=== PATIENT | female | born 1990 | race Caucasian/White ===

== ENCOUNTER → 2017-03-07 | Outpatient (CLI) | payer BC ==
--- NOTE | 2017-03-07 10:27 | US ---
EXAMINATION TYPE: US abdomen complete DATE OF EXAM: 03/07/2017 10:12 AM COMPARISON: 2014 CLINICAL HISTORY: R10.11 RUQ Pain. Large body habitus, overlying bowel gas EXAM MEASUREMENTS: Liver Length: 14.0 cm Gallbladder Wall: 0.2 cm CBD: 0.2 cm Spleen: 11.0 cm Right Kidney: 10.2 x 3.3 x 10.0 cm Left Kidney: 10.0 x 4.0 x 3.9 cm Pancreas: large body habitus, overlying bowel gas, portions seen wnl Liver: large body habitus, overlying bowel gas, portions seen wnl Gallbladder: large body habitus, overlying bowel gas, portions seen wnl Evidence for sonographic Alonzo's sign: No CBD: wnl Spleen: wnl Right Kidney: wnl Left Kidney: wnl Upper IVC: wnl Abd Aorta: wnl The liver is homogenous. The intrahepatic portion of the IVC and proximal abdominal aorta are within normal limits. There is no evidence of cholelithiasis. Common bile duct is unremarkable. The visu alized portions of the pancreas are homogenous. The spleen is unremarkable. Kidneys are symmetric a nd free of hydronephrosis. No renal lesions are seen. IMPRESSION: No significant abnormalities
== END | disposition home or self-care (01) ==
LOC: RADUSWWP 09:46
PROVIDERS: ATTEND Family Medicine
DX: R10.11 Right upper quadrant pain (principal)
CPT/HCPCS: 76700

== ENCOUNTER → 2017-04-03 | Outpatient (CLI) | payer BC ==
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
== END | disposition home or self-care (01) ==
LOC: RADNMMAIN 13:08
PROVIDERS: ATTEND Family Medicine
DX: K21.9 Gastro-esophageal reflux disease without esophagitis (principal)
CPT/HCPCS: 78226; A9537

== ENCOUNTER → 2018-01-20 | Outpatient (CLI) | payer BC | END | disposition home or self-care (01) | LOC: PROCWHC3 12:06 | PROVIDERS: ATTEND Family Medicine | DX: R11.0 Nausea (principal); R52 Pain, unspecified | CPT/HCPCS: 87502 ==

== ENCOUNTER 2018-02-10 07:43 | Emergency (ER) | payer OTHER, BC ==
[2018-02-10 07:48] VITALS: BP 105/66; PULSE 88; RESP 16; TEMP 97.8
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
--- NOTE | 2018-02-10 08:27 | XR ---
EXAMINATION TYPE: XR knee complete LT DATE OF EXAM: 02/10/2018 CLINICAL HISTORY: pain TECHNIQUE: Three views of the left knee are obtained. COMPARISON: None. FINDINGS: There is no acute fracture/dislocation. The tri-compartment joint spaces appear within no rmal limits. The overlying soft tissue appears unremarkable. IMPRESSION: There is no acute fracture or dislocation ICD 10 NO FRACTURE, INITIAL EVALUATION
--- NOTE | 2018-02-10 08:28 | XR ---
EXAMINATION TYPE: XR shoulder complete RT DATE OF EXAM: 02/10/2018 CLINICAL HISTORY: pain TECHNIQUE: Three views of the right shoulder are obtained. COMPARISON: None FINDINGS: There is no acute fracture/dislocation evident. The acromioclavicular and glenohumeral lan int spaces appear within normal limits. The visualized ribs are intact and unremarkable. IMPRESSION: 1. There is no acute fracture or dislocation. ICD 10 NO FRACTURE, INITIAL EVALUATION
[2018-02-10] MEDS ORDERED: traMADol 50 MG STARTER PACK 3 TAB BTL PO STA (08:35)
--- NOTE | 2018-02-10 08:40 | ED ---
Disposition Clinical Impression: Left knee sprain, Sprain of right shoulder Disposition: HOME SELF-CARE Condition: Good Instructions: Rotator Cuff Injury (ED), Meniscus Tear (ED) Additional Instructions: patient advised to ice the shoulder and he is much as possible. Wear the sling and Lasha wrap. Patient should follow-up with site specialist within the next few days. He may need to have an MRI for further evaluation. Patient should take the pain medicine and anti-inflammatory medicine. Return to the emergency department if any alarming signs or symptoms occur. Prescriptions: Ibuprofen [Motrin] 400 mg PO Q6HR PRN #20 tab PRN Reason: Pain traMADol HCl [Ultram] 50 mg PO Q6H PRN #20 tab PRN Reason: Pain Referrals: Hema Gregg MD [Primary Care Provider] - 1-2 days Braeden Alonzo MD [STAFF PHYSICIAN] - 1-2 days
== END 2018-02-10 08:50 | disposition home or self-care (01) ==
LOC: EC 07:43
DX: S43.401A Unspecified sprain of right shoulder joint, initial encounter (principal); S83.92XA Sprain of unspecified site of left knee, initial encounter; V89.2XXA Person injured in unspecified motor-vehicle accident, traffic, initial encounter; W22.11XA Striking against or struck by driver side automobile airbag, initial encounter; Y92.410 Unspecified street and highway as the place of occurrence of the external cause
CPT/HCPCS: 99284

== ENCOUNTER → 2019-04-21 | Outpatient (CLI) | payer MEDICAID ==
--- NOTE | 2019-04-21 15:15 | US ---
EXAMINATION TYPE: US thyroid st tissue head/neck DATE OF EXAM: 04/21/2019 COMPARISON: NONE CLINICAL HISTORY: E04.1 SINGLE THYROID GOITER. Difficulty swallowing GLAND SIZE: Right Lobe: 4.5 x 1.3 x 1.6 cm Overall Parenchyma: mildly heterogeneous Left Lobe: 4.5 x 1.3 x 1.4 cm Overall Parenchyma: mildly heterogeneous Isthmus Thickness: 0.2 cm NODULES RIGHT: # of nodules measured on right: 0 LEFT: # of nodules measured on left: 0 ISTHMUS: # of nodules measured in the isthmus: 0 Bilateral neck scanned, no evidence of lymphadenopathy. Slightly heterogeneous normal-sized thyroid without discrete nodules. IMPRESSION: As above.
== END | disposition home or self-care (01) ==
LOC: RADUSWWP 14:54
PROVIDERS: ATTEND Family Medicine
DX: E04.1 Nontoxic single thyroid nodule (principal)
CPT/HCPCS: 76536

== ENCOUNTER → 2019-06-05 | Outpatient (CLI) | payer MEDICAID ==
--- NOTE | 2019-06-05 12:20 | ECHOF ---
Referral Reason:Z82.49 Family history of ischemic heart disease a MEASUREMENTS -------- HEIGHT: 406.4 cm WEIGHT: 29.5 kg BP: RVIDd: 2.0 cm (< 3.3) IVSd: 0.8 cm (0.6 - 1.1) LVIDd: 4.6 cm (3.9 - 5.3) LVPWd: 0.9 cm (0.6 - 1.1) IVSs: 1.2 cm LVIDs: 2.9 cm LVPWs: 1.2 cm LA Diam: 2.4 cm (2.7 - 3.8) Ao Diam: 2.8 cm (2.0 - 3.7) AV Cusp: 1.9 cm (1.5 - 2.6) LA Diam: 2.7 cm (2.7 - 3.8) MV EXCURSION: 16.139 mm (> 18.000) MV EF SLOPE: 86 mm/s (70 - 150) EPSS: 0.5 cm MV E Jacob: 0.72 m/s MV DecT: 168 ms MV A Jacob: 0.59 m/s MV E/A Ratio: 1.23 RAP: 5.00 mmHg RVSP: 18.36 mmHg FINDINGS -------- Sinus rhythm. This was a technically good study. LV size, wall thickness and systolic function are normal, with an EF greater than 55%. The left sachi tricular size is normal. The right ventricle is normal in size. The left atrial size is normal. The right atrial size is normal. The aortic valve is trileaflet, and appears structurally normal. No aortic stenosis or regurgitation. Mild mitral regurgitation is present. Mild tricuspid regurgitation present. There is no evidence of pulmonary hypertension. The right v entricular systolic pressure, as measured by Doppler, is 18.36mmHg. There is no pulmonic regurgitation present. The aortic root size is normal. There is no pericardial effusion. CONCLUSIONS -------- 1. LV size, wall thickness and systolic function are normal, with an EF greater than 55%. 2. The left ventricular size is normal. 3. The right ventricle is normal in size. 4. The left atrial size is normal. 5. The right atrial size is normal. 6. The aortic valve is trileaflet, and appears structurally normal. No aortic stenosis or regurgitati on. 7. Mild mitral regurgitation is present. 8. Mild tricuspid regurgitation present. 9. There is no evidence of pulmonary hypertension. 10. The right ventricular systolic pressure, as measured by Doppler, is 18.36mmHg. 11. There is no pulmonic regurgitation present. 12. The aortic root size is normal. 13. There is no pericardial effusion. SENIOR CLINICAL RESEARCH SCIENTIST: Zandra Fallon RDCS
== END ==
LOC: RADECHMAIN 08:24
PROVIDERS: ATTEND Family Medicine
DX: I08.1 Rheumatic disorders of both mitral and tricuspid valves (principal); Z82.49 Family history of ischemic heart disease and other diseases of the circulatory system
CPT/HCPCS: 93306

== ENCOUNTER → 2020-06-27 | Outpatient (CLI) | payer OTHER ==
[2020-06-27 13:07] LABS: Basophils % (A) 0 %; Eosinophils # (A) 0.2 k/uL (0-0.7); Eosinophils % (A) 3 %; HGB 14.1 gm/dL (11.4-16.0); Lymphocytes # (A) 1.8 k/uL (1.0-4.8); Lymphocytes % (A) 22 %; MCH 28.8 pg (25.0-35.0); MCHC 32.9 g/dL (31.0-37.0); MCV 87.7 fL (80.0-100.0); Mean Platelet Volume 7.6; Monocytes # (A) 0.5 k/uL (0-1.0); Monocytes % (A) 6 %; Neutrophils # (A) 5.6 k/uL (1.3-7.7); Neutrophils % (A) 68 %; Platelet Count 362 k/uL (150-450); RBC 4.91 m/uL (3.80-5.40); RDW 13.1 % (11.5-15.5); WBC 8.2 k/uL (3.8-10.6)
[2020-06-27 19:28] LABS: African American GFR (CKD) 113.9 (60.0-200.0); Albumin/Globulin Ratio 1.43 (1.60-3.17); Anion Gap 7.7 mmol/L (4.00-12.00); BUN/Creat Ratio 11.25 Ratio (12.00-20.00); Calcium 9.2 mg/dL (8.7-10.3); Carbon Dioxide 26.3 mmol/L (21.6-31.8); Chol/HDL Ratio 3.65; Globulin 2.8 g/dL (1.6-3.3); LDL Cholesterol,Calculated 109.4 mg/dL (0.0-131.0); Non-African American GFR(CKD) 98.2 (60.0-200.0); Potassium 4.4 mmol/L (3.5-5.5); Total Bilirubin 0.5 mg/dL (0.2-1.2); Total Protein 6.8 g/dL (6.2-8.2); VLDL Calculation 17.6 mg/dL (5.00-40.00)
[2020-06-27 21:56] LABS: Hepatitis B Surface Antibody Reactive (Non-Reactive)
[2020-06-28 17:02] LABS: Mumps Virus IgG Ab Interp POSITIVE (NEGATIVE)
== END | disposition home or self-care (01) ==
LOC: LABWHC1 10:27
PROVIDERS: ATTEND Family Medicine
DX: Z01.84 Encounter for antibody response examination (principal); F32.9 Major depressive disorder, single episode, unspecified
CPT/HCPCS: 36415; 80053; 80061; 84443; 85025; 86706; 86735; 86762; 86765; 86787

== ENCOUNTER → 2022-07-31 | Outpatient (CLI) | payer OTHER ==
--- NOTE | 2022-07-31 08:22 | US ---
EXAMINATION TYPE: US abdomen complete DATE OF EXAM: 07/31/2022 COMPARISON: NONE CLINICAL HISTORY: R10.9 Abd pain. lost 30lbs in 1 month, nausea, cannot eat, patient states she has a utoimmune disease but not diagnosed with which one TECHNIQUE: Multiple sonographic images of the abdomen are obtained. FINDINGS: EXAM MEASUREMENTS: Liver Length: 14.7 cm Gallbladder Wall: 0.2 cm CBD: 0.4 cm Spleen: 10.3 cm Right Kidney: 10.7 x 5.9 x 4.7 cm Left Kidney: 11.6 x 4.1 x 4.9 cm [employer] NOTES: bowel gas limits exam Pancreas: not seen due to gas Liver: wnl Gallbladder: wnl Evidence for sonographic Alonzo's sign: no CBD: wnl Spleen: wnl Right Kidney: wnl Left Kidney: wnl Upper IVC: wnl Abd Aorta: bowel gas limits views The liver is homogenous. The intrahepatic portion of the IVC and proximal abdominal aorta are within normal limits. There is no evidence of cholelithiasis. Common bile duct is unremarkable. The visu alized portions of the pancreas are homogenous. The spleen is unremarkable. Kidneys are symmetric a nd free of hydronephrosis. No renal lesions are seen. IMPRESSION: Negative
== END | disposition home or self-care (01) ==
LOC: RADUSWWP 07:01
PROVIDERS: ATTEND Family Medicine
DX: R10.9 Unspecified abdominal pain (principal)
CPT/HCPCS: 76700

== ENCOUNTER → 2022-09-19 | Outpatient (CLI) | payer OTHER ==
[2022-09-19 14:24] LABS: Basophils # (A) 0.04 X 10*3/uL (0.00-0.10); Basophils % (A) 0.5 %; Eosinophils # (A) 0.11 X 10*3/uL (0.04-0.35); Eosinophils % (A) 1.5 %; HCT 45.5 % (37.2-46.3); HGB 15.3 g/dL (12.0-15.0); Immature Grans, Automated 0.1 %; Lymphocytes # (A) 1.89 X 10*3/uL (0.90-5.00); Lymphocytes % (A) 25.8 %; MCH 29.7 pg (27.0-32.0); MCHC 33.6 g/dL (32.0-37.0); MCV 88.3 fL (80.0-97.0); Mean Platelet Volume 10.7 fL (9.5-12.2); Monocytes % (A) 6.8 %; NRBC Per 100 WBC 0 /100 WBCS (0.0-0.0); Neutrophils # (A) 4.78 X 10*3/uL (1.80-7.70); Neutrophils % (A) 65.3 %; Platelet Count 368 X 10*3/uL (140-440); RBC 5.15 X 10*6/uL (4.10-5.20); RDW 13.5 % (11.5-14.5); WBC 7.33 X 10*3/uL (4.50-10.00)
[2022-09-19 15:03] LABS: Erythrocyte Sedimentation Rate 4 mm/Hr (0-20)
[2022-09-19 15:19] LABS: % Iron Saturation 27.11 (12.00-45.00); ALT 20 U/L (8-44); AST 23 U/L (13-35); African American GFR (CKD) 97.4 (60.0-200.0); Albumin 4.2 g/dL (3.8-4.9); Albumin/Globulin Ratio 1.45 (1.60-3.17); Alkaline Phosphatase 69 U/L (41-126); BUN/Creat Ratio 7.33 Ratio (12.00-20.00); Blood Urea Nitrogen 6.6 mg/dL (9.0-27.0); C Reactive Protein <0.30 mg/dL (0.00-0.80); Calcium 9.8 mg/dL (8.7-10.3); Chloride 103 mmol/L (96-109); Globulin 2.9 g/dL (1.6-3.3); Glucose 86 mg/dL (70-110); Iron 104 ug/dL (50-170); Potassium 4.7 mmol/L (3.5-5.5); Sodium 138 mmol/L (135-145); Total Iron Binding Capacity 384 ug/dL (228-460); Total Protein 7.1 g/dL (6.2-8.2); Uric Acid 4.2 mg/dL (2.9-7.7)
[2022-09-19 15:20] LABS: Thyroid Peroxidase Antibodies 11.2 U/mL (0.0-33.0)
[2022-09-19 16:21] LABS: Anti-DNA, DS unit <1.0 IU/mL; Centromere Antibody <0.2 AI; Centromere Antibody Interp NEGATIVE (NEGATIVE); Chromatin Antibody 0.3 AI; DNA Double-Stranded NEGATIVE (NEGATIVE); JO-1 IgG Antibody <0.2 AI; Scleroderma SC-70 Ab <0.2 AI
[2022-09-20 11:42] LABS: Smooth Muscle Antibody 20 UNITS (<20)
[2022-09-20 12:36] LABS: HLA B27 NEGATIVE
[2022-09-20 13:54] LABS: Free Kappa Lt Chain Qnt, Serum 3.09 mg/dL (0.33-1.94); Free Lambda Lt Chain Qnt, Seru 1.62 mg/dL (0.57-2.63)
[2022-09-21 06:44] LABS: Methylmalonic Acid 0.48 umol/L (<0.40)
== END | disposition home or self-care (01) ==
LOC: LABWHC1 10:15
PROVIDERS: ATTEND Family Medicine
DX: E53.8 Deficiency of other specified B group vitamins (principal); M13.0 Polyarthritis, unspecified; D50.9 Iron deficiency anemia, unspecified; L65.0 Telogen effluvium; R53.82 Chronic fatigue, unspecified
CPT/HCPCS: 36415; 80053; 82306; 82607; 82626; 82785; 83516; 83540; 83550; 83883; 83921; 84403; 84439; 84443; 84550; 85025; 85652; 86038; 86140; 86225; 86235; 86334; 86376; 86812

== ENCOUNTER → 2022-11-07 | Outpatient (CLI) | payer OTHER ==
--- NOTE | 2022-11-07 16:23 | NM ---
EXAMINATION TYPE: NM hepatobiliary w EF DATE OF EXAM: 11/07/2022 COMPARISON: NONE INDICATION: Acute gastritis without bleeding TECHNIQUE: After the intravenous administration of 5 mCi Tc 99m Mebrofenin hepatobiliary scintigraphy is performed. Images were obtained immediately post injection. FINDINGS: There is prompt uptake and excretion of radiotracer by the liver. Extrahepatic ducts are identified at 2 minutes. The gallbladder is visualized within 20 minutes. Small bowel activity is noted within 4 minutes. At one hour 8 ounces of oral ensure plus is given to mimic CCK and gallbladder ejection fraction is c alculated at 80 %, which is just over normal. (Normal >35% and <80%.). IMPRESSION: 1. Minimal hyperkinesia of the gallbladder at 80%. Normal is less than 80%.
== END | disposition home or self-care (01) ==
LOC: RADNMMAIN 06:37
PROVIDERS: ATTEND Family Medicine
DX: K82.8 Other specified diseases of gallbladder (principal); K29.00 Acute gastritis without bleeding
CPT/HCPCS: 78226; A9537

== ENCOUNTER → 2023-01-18 | Outpatient (CLI) | payer OTHER ==
--- NOTE | 2023-01-18 15:54 | US ---
EXAMINATION TYPE: US OB<=14wk fetus twins/travag DATE OF EXAM: 01/18/2023 COMPARISON: NONE CLINICAL HISTORY: R10.31 RIGHT LOWER QUADRANT PAIN. EXAM PERFORMED: Transvaginal (TV) and Transabdominal (TA) EXAM MEASUREMENTS: GESTATIONAL AGE / DATING Physician Established: Not yet established Dates by LMP: (8 weeks/0 days) EDC: 08/30/2023 Dates by First Scan: No previous this is first scan Dates by Current Scan for Baby A: ( 8 weeks/5 days) EDC: 08/25/2023 Dates by Current Scan for Baby B: (8 weeks/0 days) EDC: 08/30/2023 MATERNAL ANATOMY Uterus: Subchorionic hemorrhage appearance at the inferior aspect of Baby A's gestational sac 1.1 x 2 .0 x 2.0cm. Right Ovary: wnl Left Ovary: Corpus luteal cyst 1.8 x 1.8 x 2.1cm Post CDS / Adnexa: wnl Presence of free fluid: No Presence of corpus luteal cyst: Yes Presence of subchorionic bleed: Yes Presence of two separate gestational sacs: Yes GESTATION / SURVEY TWIN A CRL: 1.7cm (8wks/2days) MSD: 3.66cm (9wks/1days) Yolk Sac (normal less than 6mm): 4.2mm Heart Rate: 165 bpm Rhythm: Normal IUP: Viable IUP TWIN B CRL: 1.49cm (7wks/6days) MSD: 2.89cm (8wks/1days) Yolk Sac (normal less than 6mm): 5.0mm Heart Rate: 165 bpm Rhythm: Normal IUP: Viable IUP Date of LMP: 11/23/2022 Beta HcG (if available): Unavailable Dichorionic diamniotic live twin . IMPRESSION: 1. Dichorionic diamniotic live twin . Baby A has gestational age of 8 weeks 5 days and baby B has a gestational age of 8 weeks 0 days. 2. Small subchorionic hemorrhage at the inferior aspect of baby A gestational sac. Close clinical miller rveillance is recommended.
== END | disposition home or self-care (01) ==
LOC: RADUSWWP 14:45
PROVIDERS: ATTEND Obstetrics & Gynecology
DX: O26.891 Other specified pregnancy related conditions, first trimester (principal); O20.8 Other hemorrhage in early pregnancy; O30.041 Twin pregnancy, dichorionic/diamniotic, first trimester; Z3A.08 8 weeks gestation of pregnancy
CPT/HCPCS: 76801; 76802; 76817

== ENCOUNTER 2023-01-25 21:55 | Emergency (ER) | payer OTHER ==
[2023-01-25 22:00] VITALS: BP 113/76; PULSE 78; RESP 20; TEMP 98.5
[2023-01-25] MEDS ORDERED: ACETAMINOPHEN TAB 500 MG TAB PO STA (22:25)
[2023-01-25] MEDS ORDERED: ONDANSETRON 4 MG/2 ML VIAL IVP STA (22:25)
[2023-01-25] MEDS ORDERED: SODIUM CHLORIDE 0.9% 1,000 ML IV ONE (22:25)
[2023-01-25 23:00] LABS: Basophils % (A) 0 %; Eosinophils # (A) 0.2 k/uL (0-0.7); Eosinophils % (A) 2 %; HCT 38.4 % (34.0-46.0); HGB 13.5 gm/dL (11.4-16.0); Lymphocytes # (A) 2.4 k/uL (1.0-4.8); Lymphocytes % (A) 21 %; MCH 31.4 pg (25.0-35.0); MCHC 35.2 g/dL (31.0-37.0); MCV 89.1 fL (80.0-100.0); Mean Platelet Volume 7.8; Monocytes # (A) 0.7 k/uL (0-1.0); Monocytes % (A) 6 %; Neutrophils # (A) 7.9 k/uL (1.3-7.7); Neutrophils % (A) 69 %; Platelet Count 256 k/uL (150-450); RBC 4.31 m/uL (3.80-5.40); RDW 13.1 % (11.5-15.5); WBC 11.5 k/uL (3.8-10.6)
[2023-01-25 23:07] LABS: ALT 23 U/L (4-34); AST 26 U/L (14-36); African American GFR (CKD) >90 (>60 ml/min/1.73 sqM); Albumin 3.6 g/dL (3.5-5.0); Alkaline Phosphatase 49 U/L (38-126); Anion Gap 7 mmol/L; Blood Urea Nitrogen 13 mg/dL (7-17); Calcium 8.8 mg/dL (8.4-10.2); Carbon Dioxide 22 mmol/L (22-30); Chloride 106 mmol/L (98-107); Glucose 79 mg/dL (74-99); Non-African American GFR(CKD) >90 (>60 ml/min/1.73 sqM); Potassium 3.8 mmol/L (3.5-5.1); Sodium 135 mmol/L (137-145); Total Bilirubin 0.3 mg/dL (0.2-1.3); Total Protein 6.7 g/dL (6.3-8.2)
[2023-01-25 23:10] LABS: INR 0.9 (<1.2); Partial Thromboplastin Time 23.8 sec (22.0-30.0); Prothrombin Time 9.4 sec (9.0-12.0)
[2023-01-25 23:18] LABS: Appearance,Urine Clear (Clear); Bilirubin,Urine Negative (Negative); Blood,Urine Negative (Negative); Color,Urine Colorless; Glucose,Urine (UA) Negative (Negative); Ketones,Urine Negative (Negative); Leukocyte Esterase,Urine Negative (Negative); Nitrite,Urine Negative (Negative); PH, Urine 6.5 (5.0-8.0); Protein,Urine Negative (Negative); Specific Gravity,Urine 1.002 (1.001-1.035); Urobilinogen,Urine <2.0 mg/dL (<2.0)
--- NOTE | 2023-01-25 23:56 | ED ---
General Adult HPI - General Chief complaint: Abdominal Pain Stated complaint: Left side pain, 9wks Time Seen by Provider: 01/25/23 22:15 Source: patient Mode of arrival: ambulatory Limitations: no limitations - History of Present Illness Initial comments: Patient is a 32-year-old female currently 9 weeks with twins presenting with chief complaint of left-sided flank pain. Patient states that this evening she started experiencing sharp shooting pain in the left side. Patient is having no dysuria or hematuria. No fevers or chills. She admits to some nausea, but states that she has been nauseous throughout her . No chest pain or difficulty breathing. Patient notes that the pain worsens with certain positions and movements. She admits to some pelvic cramping, no current bleeding. States that she was recently diagnosed with a subchorionic hemorrhage. - Related Data Home Medications Medication Instructions Recorded Confirmed ARIPiprazole [Abilify] 5 mg PO HS 02/10/18 02/10/18 Cetirizine HCl [Zyrtec] 10 mg PO DAILY 02/10/18 02/10/18 Dicyclomine [Bentyl] 10 mg PO DAILY 02/10/18 02/10/18 Famotidine [Pepcid] 20 mg PO DAILY 02/10/18 02/10/18 buPROPion HCL [Wellbutrin XL] 300 mg PO DAILY 02/10/18 02/10/18 traZODone HCL [Desyrel] 50 mg PO HS 02/10/18 02/10/18 Previous Rx's Medication Instructions Recorded Ibuprofen [Motrin] 400 mg PO Q6HR PRN #20 tab 02/10/18 traMADol HCl [Ultram] 50 mg PO Q6H PRN #20 tab 02/10/18 Allergies Allergy/AdvReac Type Severity Reaction Status Date / Time No Known Allergies Allergy Verified 01/25/23 21:59 Review of Systems ROS Statement: Those systems with pertinent positive or pertinent negative responses have been documented in the HPI. ROS Other: All systems not noted in ROS Statement are negative. Past Medical History Past Medical History: Asthma, GERD/Reflux Additional Past Medical History / Comment(s): antiphospholipid antiboties History of Any Multi-Drug Resistant Organisms: None Reported Past Surgical History: No Surgical Hx Reported Additional Past Surgical History / Comment(s): breast biopsy Past Psychological History: No Psychological Hx Reported Smoking Status: Never smoker Past Alcohol Use History: None Reported Past Drug Use History: None Reported General Exam Limitations: no limitations General appearance: alert, in no apparent distress Head exam: Present: atraumatic, normocephalic, normal inspection Eye exam: Present: normal appearance Neck exam: Present: normal inspection, full ROM Respiratory exam: Present: normal lung sounds bilaterally, chest wall tenderness. Absent: respiratory distress, wheezes, rales, rhonchi, stridor Cardiovascular Exam: Present: regular rate, normal rhythm, normal heart sounds. Absent: systolic murmur, diastolic murmur, rubs, gallop, clicks Neurological exam: Present: alert, oriented X3, CN II-XII intact Psychiatric exam: Present: normal affect, normal mood Skin exam: Present: warm, dry, intact, normal color. Absent: rash Course Vital Signs 01/25/23 21:57 Temperature 98.5 F Pulse Rate 78 Respiratory 20 Rate Blood Pressure 113/76 O2 Sat by Pulse 99 Oximetry Medical Decision Making - Medical Decision Making Was pt. sent in by a medical professional or institution (Dr. PA, MOTION PICTURE COMMENTATOR, urgent care, hospital, or fpc...) When possible be specific @ -No Did you speak to anyone other than the patient for history (EMS, parent, family, police, friend...)? What history was obtained from this source @ -No Did you review nursing and triage notes (agree or disagree)? Why? @ -I reviewed and agree with nursing and triage notes Were old charts reviewed (outside hosp., previous admission, EMS record, old EKG, old radiological studies, urgent care reports/EKG's, fpc records)? Report findings @ -No old charts were reviewed Differential Diagnosis (chest pain, altered mental status, abdominal pain women, abdominal pain men, vaginal bleeding, weakness, fever, dyspnea, syncope, headache, dizziness, GI bleed, back pain, seizure, CVA, palpatations, mental health, musculoskeletal)? @ -Differential includes nephrolithiasis, pyelonephritis, muscle strain, this is not an all inclusive list EKG interpreted by me (3pts min.). @ -As above X-rays interpreted by me (1pt min.). @ -None done CT interpreted by me (1pt min.). @ -None done U/S interpreted by me (1pt. min.). @ -Ultrasound shows normal kidneys and no evidence of renal mass or obs truction. Normal urinary bladder. ultrasound shows dichorionic diamniotic twins gestation. heart tones of 162 and 168 What testing was considered but not performed or refused? (CT, X-rays, U/S, labs)? Why? @ -None What meds were considered but not given or refused? Why? @ -None Did you discuss the management of the patient with other professionals (professionals i.e. , PA, MOTION PICTURE COMMENTATOR, lab, RT, psych nurse, geriatric social work professor, breaker off, teacher, logistics officer, caseworker protective services)? Give summary @ -No Was smoking cessation discussed for >3mins.? @ -No Was critical care preformed (if so, how long)? @ -No Were there social determinants of health that impacted care today? How? (Homelessness, low income, unemployed, alcoholism, drug addiction, transportation, low edu. Level, literacy, decrease access to med. care, senior care, rehab)? @ -No Was there de-escalation of care discussed even if they declined (Discuss DNR or withdrawal of care, Hospice)? DNR status @ -No What co-morbidities impacted this encounter? (DM, HTN, Smoking, COPD, CAD, Cancer, CVA, ARF, Chemo, Hep., AIDS, mental health diagnosis, sleep apnea, mor bid obesity)? @ - Was patient admitted / discharged? Hospital course, mention meds given and route, prescriptions, significant lab abnormalities, going to OR and other pertinent info. @ -Patient was discharged home. This is a 32-year-old female currently 8 weeks with twins presenting with chief complaint of left-sided flank pain that started this evening. On physical examination pain is reproducible on palpation. Lab work shows WBC 11.5, likely due to . Urine shows no sign of infection or bleeding. CMP is essentially unremarkable. HCG quantitative is within acceptable limits. Blood type A+. Ultrasound of the kidneys and ureters and bladder shows no acute process. ultrasound shows satisfactory growth compared to previous exam. Patient was given Tylenol for pain. On reassessment patient is resting. She is educated on these findings and on supportive management at home with heat and Tylenol. Instructed to follow-up with PCP and COPY SUPERVISOR. Follow-up with PCP. Report back to ER with any new or worsening symptoms. Discussed return parameters and answered all questions. Patient conveyed verbal understanding and agreed to the plan. I discussed this case in detail with my attending Dr. Bowers Undiagnosed new problem with uncertain prognosis? @ -No Drug Therapy requiring intensive monitoring for toxicity (Heparin, Nitro, Insulin, Cardizem)? @ -No Were any procedures done? @ -No Diagnosis/symptom? @ -Mechanical back pain Acute, or Chronic, or Acute on Chronic? @ -Acute Uncomplicated (without systemic symptoms) or Complicated (systemic symptoms)? @ -uncomplicated Side effects of treatment? @ -No Exacerbation, Progression, or Severe Exacerbation? @ -No Poses a threat to life or bodily function? How? (Chest pain, [place], VA, pneumonia, PE, COPD, DKA, ARF, appy, cholecystitis, CVA, Diverticulitis, Homicidal, Suicidal, threat to staff... and all critical care pts) @ -No - Lab Data Result diagrams: 01/25/23 22:45 01/25/23 22:45 Lab Results 01/25/23 01/25/23 01/25/23 Range/Units 22:36 22:45 22:45 WBC 11.5 H (3.8-10.6) k/uL RBC 4.31 (3.80-5.40) m/uL Hgb 13.5 (11.4-16.0) gm/dL Hct 38.4 (34.0-46.0) % MCV 89.1 (80.0-100.0) fL MCH 31.4 (25.0-35.0) pg MCHC 35.2 (31.0-37.0) g/dL RDW 13.1 (11.5-15.5) % Plt Count 256 (150-450) k/uL MPV 7.8 Neutrophils % 69 % Lymphocytes % 21 % Monocytes % 6 % Eosinophils % 2 % Basophils % 0 % Neutrophils # 7.9 H (1.3-7.7) k/uL Lymphocytes # 2.4 (1.0-4.8) k/uL Monocytes # 0.7 (0-1.0) k/uL Eosinophils # 0.2 (0-0.7) k/uL Basophils # 0.0 (0-0.2) k/uL PT (9.0-12.0) sec INR (<1.2) APTT (22.0-30.0) sec Sodium 135 L (137-145) mmol/L Potassium 3.8 (3.5-5.1) mmol/L Chloride 106 (98-107) mmol/L Carbon Dioxide 22 (22-30) mmol/L Anion Gap 7 mmol/L BUN 13 (7-17) mg/dL Creatinine 0.69 (0.52-1.04) mg/dL Est GFR (CKD-EPI)AfAm >90 (>60 ml/min/1.73 sqM) Est GFR (CKD-EPI)NonAf >90 (>60 ml/min/1.73 sqM) Glucose 79 (74-99) mg/dL Plasma Lactic Acid Segun (0.7-2.0) mmol/L Calcium 8.8 (8.4-10.2) mg/dL Total Bilirubin 0.3 (0.2-1.3) mg/dL AST 26 (14-36) U/L ALT 23 (4-34) U/L Alkaline Phosphatase 49 (38-126) U/L Total Protein 6.7 (6.3-8.2) g/dL Albumin 3.6 (3.5-5.0) g/dL HCG, Quant 511505.0 mIU/mL Urine Color Colorless Urine Appearance Clear (Clear) Urine pH 6.5 (5.0-8.0) Ur Specific [place] 1.002 (1.001-1.035) Urine Protein Negative (Negative) Urine Glucose (UA) Negative (Negative) Urine Ketones Negative (Negative) Urine Blood Negative (Negative) Urine Nitrite Negative (Negative) Urine Bilirubin Negative (Negative) Urine Urobilinogen <2.0 (<2.0) mg/dL Ur Leukocyte Esterase Negative (Negative) Blood Type Blood Type Recheck Bld Type Recheck Status 01/25/23 01/25/23 01/25/23 Range/Units 22:45 22:45 23:44 WBC (3.8-10.6) k/uL RBC (3.80-5.40) m/uL Hgb (11.4-16.0) gm/dL Hct (34.0-46.0) % MCV (80.0-100.0) fL MCH (25.0-35.0) pg MCHC (31.0-37.0) g/dL RDW (11.5-15.5) % Plt Count (150-450) k/uL MPV Neutrophils % % Lymphocytes % % Monocytes % % Eosinophils % % Basophils % % Neutrophils # (1.3-7.7) k/uL Lymphocytes # (1.0-4.8) k/uL Monocytes # (0-1.0) k/uL Eosinophils # (0-0.7) k/uL Basophils # (0-0.2) k/uL PT 9.4 (9.0-12.0) sec INR 0.9 (<1.2) APTT 23.8 (22.0-30.0) sec Sodium (137-145) mmol/L Potassium (3.5-5.1) mmol/L Chloride (98-107) mmol/L Carbon Dioxide (22-30) mmol/L Anion Gap mmol/L BUN (7-17) mg/dL Creatinine (0.52-1.04) mg/dL Est GFR (CKD-EPI)AfAm (>60 ml/min/1.73 sqM) Est GFR (CKD-EPI)NonAf (>60 ml/min/1.73 sqM) Glucose (74-99) mg/dL Plasma Lactic Acid Segun 0.6 L (0.7-2.0) mmol/L Calcium (8.4-10.2) mg/dL Total Bilirubin (0.2-1.3) mg/dL AST (14-36) U/L ALT (4-34) U/L Alkaline Phosphatase (38-126) U/L Total Protein (6.3-8.2) g/dL Albumin (3.5-5.0) g/dL HCG, Quant mIU/mL Urine Color Urine Appearance (Clear) Urine pH (5.0-8.0) Ur Specific [place] (1.001-1.035) Urine Protein (Negative) Urine Glucose (UA) (Negative) Urine Ketones (Negative) Urine Blood (Negative) Urine Nitrite (Negative) Urine Bilirubin (Negative) Urine Urobilinogen (<2.0) mg/dL Ur Leukocyte Esterase (Negative) Blood Type A Positive Blood Type Recheck A Pos Bld Type Recheck Status No Disposition Clinical Impression: Mechanical back pain Disposition: HOME SELF-CARE Condition: Good Additional Instructions: Take Tylenol as needed. Rest and use heat as needed. Follow-up with PCP and COPY SUPERVISOR. Report back to ER with any new or worsening symptoms. Is patient prescribed a controlled substance at d/c from ED?: No Referrals: Keshia Orozco MD [Primary Care Provider] - 1-2 days Rosie Dumas DO [Doctor of Osteopathic Medicine] - 1-2 days Time of Disposition: 01:04
--- NOTE | 2023-01-26 00:18 | US ---
EXAMINATION TYPE: US kidneys/renal and bladder DATE OF EXAM: 01/25/2023 COMPARISON: 07/31/2022 CLINICAL HISTORY: flank pain. pain exam limited due to bowel gas and rib shadowing. EXAM MEASUREMENTS: Right Kidney: 10.3 x 6.1 x 5.2 cm Left Kidney: 11.4 x 4.5 x 4.8 cm Right Kidney: No hydronephrosis or masses seen Left Kidney: No hydronephrosis or masses seen Bladder: wnl Bilateral Jets seen: Yes IMPRESSION: Normal kidneys. No evidence of renal mass or obstruction. Normal urinary bladder.
--- NOTE | 2023-01-26 00:21 | US ---
EXAMINATION TYPE: US OB <= 14 wk twins DATE OF EXAM: 01/25/2023 COMPARISON: 01/18/2023 CLINICAL HISTORY: cramping in . pain EXAM PERFORMED: Transabdominal (TA) EXAM MEASUREMENTS: GESTATIONAL AGE / DATING Physician Established: Not yet established Dates by LMP: ( 9 weeks/1 days) EDC: 08/30/2023 Dates by First Scan: (9 weeks/1 days) EDC: 08/30/2023 Dates by Current Scan for Baby A: ( 8 weeks/6 days) EDC: 08/31/2023 Dates by Current Scan for Baby B: ( 9 weeks/0 days) EDC: 08/30/2023 MATERNAL ANATOMY Uterus: 13.2 x 6.8 x 9.6 cm Right Ovary: Obscured by bowel gas Left Ovary: Obscured by bowel gas. Post CDS / Adnexa: wnl Presence of free fluid: no Presence of corpus luteal cyst: no Presence of subchorionic bleed: not seen on today's exam. Presence of two separate gestational sacs: yes GESTATION / SURVEY TWIN A CRL: 2.15 cm 8(wks/ 6days) Yolk Sac (normal less than 6mm): 4mm Heart Rate: 162 bpm Rhythm: Normal IUP: Viable IUP TWIN B CRL: 2.25 cm (9wks/ 0days) Yolk Sac (normal less than 6mm): 4 mm Heart Rate: 168 bpm Rhythm: Normal IUP: Viable IUP Beta HcG (if available): Not available at this time IMPRESSION: There is dichorionic diamniotic twin gestation. There is satisfactory growth compared to last exam
== END 2023-01-26 01:11 | disposition home or self-care (01) ==
LOC: EC 21:55
DX: O26.891 Other specified pregnancy related conditions, first trimester (principal); M54.50 Low back pain, unspecified; O99.511 Diseases of the respiratory system complicating pregnancy, first trimester; O99.611 Diseases of the digestive system complicating pregnancy, first trimester; O30.041 Twin pregnancy, dichorionic/diamniotic, first trimester; J45.909 Unspecified asthma, uncomplicated; K21.9 Gastro-esophageal reflux disease without esophagitis; Z79.899 Other long term (current) drug therapy; Z3A.09 9 weeks gestation of pregnancy
CPT/HCPCS: 36415; 76770; 76801; 76802; 80053; 81003; 83605; 84702; 85025; 85610; 85730; 86900; 86901; 96360; 99284

== ENCOUNTER 2023-05-04 18:51 | Outpatient (CLI) | payer OTHER ==
[2023-05-04 20:34] VITALS: BP 111/60; PULSE 80; RESP 16; TEMP 97.8
--- NOTE | 2023-05-05 12:10 | P.MSEPDOC ---
Presenting Problems - Arrival Data Date of Arrival on Unit: 05/04/23 Time of Arrival on Unit: 18:51 Mode of Transport: Ambulatory - Complaint OB-Reason for Admission/Chief Complaint: Other Comment: Abdominal tightening, cramping and pelvic pressure Medical History - Information : 2 Para: 1 Term: 1 : 0 Abortions: Spontaneous or Elective: 0 Number of Living Children: 1 - Gestational Age Gestational Age by DELON (wks/days): 22 Weeks and 5 Days - History Complications: Multiple Review of Systems - Review of Systems Constitutional: No problems Breast: No problems ENT: No problems Cardiovascular: No problems Respiratory: No problems Gastrointestinal: No problems Genitourinary: No problems Musculoskeletal: No problems Neurological: No problems Skin: No problems Vital Signs - Temperature Temperature: 97.8 F Temperature Source: Temporal Artery Scan - Pulse Left Pulse Oximetery Pulse Rate: 80 Pulse Assessment Method: Pulse Oximetry - Respirations Respiratory Rate: 16 Oxygen Delivery Method: Room Air O2 Sat by Pulse Oximetry: 99 - Blood Pressure Right Arm Sitting Blood Pressure: 111/60 Blood Pressure Mean: 77 Blood Pressure Source: Automatic Cuff Medical Screen Scoring - Cervical Exam Dilation (cm): 0 Membranes: Intact - Uterine Contractions Intensity: Mild Resting: Soft to palpation - Assessment - Baby A Baseline FHR: 145 - Assessment - Baby B Baseline FHR: 155 Physician Notification - Physician Notified Physician Notified Date: 05/04/23 Physician Notified Time: 19:11 Physician: Rosie Dumas New Order Received: Yes - Notification Comment Comment: Dr. Dumas notified of pt's arrival to triage with c/o abdominal tightening, cramping and pelvic pressure. Report given including FHTs, uterine activity and pt response. Orders for oral hydration and an SVE. Per Dr. Dumas, RN to educate pt to avoid sexual intercourse until her next appointment, adequate hydration and rest. POC discussed with pt, who verbalized understanding and agreement. Maternal Triage Index - Maternal Triage Index Presenting for scheduled procedure w/no complaint: No - Stat/Priority 1 Stat Priority 1: No - Urgent/Priority 2 Urgent Priority 2: No - Prompt/Priority 3 Prompt Priority 3: No - Non-Urgent/Priority 4 Non-Urgent Priority 4: Yes Criteria Met for Priority 4: Pt is a with DELON 09/02/23 here at 22.5 weeks of gestation with c/o abdominal tightening, cramping and pelvic pressure. Pt reports a very active day as she is going to [place] tomorrow with family, pt also reports sexual intercourse in the last 24 hours. Disposition - Disposition OB Disposition: Discharge to home Discharge Date: 05/04/23 Discharge Time: 20:25 I agree with the RN Medical Screening Exam: Yes Case reviewed; plan agreed upon as documented in EMR&OBIX.: Yes Diagnosis: PAIN, UNSPECIFIED
== END 2023-05-04 20:25 | disposition home or self-care (01) ==
LOC: FBPOP 18:51
PROVIDERS: ATTEND Obstetrics & Gynecology
DX: O26.892 Other specified pregnancy related conditions, second trimester (principal); Z3A.22 22 weeks gestation of pregnancy; O30.92 Multiple gestation, unspecified, second trimester
CPT/HCPCS: 99213

== ENCOUNTER → 2023-05-23 | Outpatient (CLI) | payer OTHER ==
[2023-05-23 16:02] LABS: Basophils # (A) 0.04 X 10*3/uL (0.00-0.10); Basophils % (A) 0.4 %; Eosinophils # (A) 0.21 X 10*3/uL (0.04-0.35); HCT 33.3 % (37.2-46.3); HGB 10.7 d/dL (12.0-15.0); Lymphocytes # (A) 1.87 X 10*3/uL (0.90-5.00); Lymphocytes % (A) 17.6 %; MCH 29.2 pg (27.0-32.0); MCHC 32.1 d/dL (32.0-37.0); MCV 90.7 FL (80.0-97.0); Mean Platelet Volume 10.7 FL (9.5-12.2); Monocytes # (A) 0.94 X 10*3/uL (0.20-1.00); Monocytes % (A) 8.8 %; NRBC Per 100 WBC 0 X 10*3/uL (0.00-0.01); Neutrophils # (A) 7.55 X 10*3/uL (1.80-7.70); Neutrophils % (A) 70.8 %; Platelet Count 312 X 10*3/uL (140-440); RBC 3.67 X 10*6/uL (4.10-5.20); RDW 13.1 % (11.5-14.5); WBC 10.65 X 10*3/uL (4.50-10.00)
[2023-05-23 16:23] LABS: ALT 21 U/L (8-44); AST 20 U/L (13-35); Albumin 3.6 d/dL (3.8-4.9); Alkaline Phosphatase 80 U/L (41-126); BUN/Creat Ratio 12.29 Ratio (12.00-20.00); Blood Urea Nitrogen 8.6 mg/dL (9.0-27.0); Carbon Dioxide 21.7 mmol/L (21.6-31.8); Chloride 106 mmol/L (96-109); Glucose 70 mg/dL (70-110); Potassium 4.7 mmol/L (3.5-5.5); Sodium 136 mmol/L (135-145); Total Bilirubin <0.2 mg/dL (0.3-1.2); Total Protein 6.6 d/dL (6.2-8.2)
== END | disposition home or self-care (01) ==
LOC: LABWHC1 08:36
PROVIDERS: ATTEND Internal Medicine Gastroenterology
DX: R89.4 Abnormal immunological findings in specimens from other organs, systems and tissues (principal)
CPT/HCPCS: 36415; 80053; 85025

== ENCOUNTER 2023-06-05 06:46 | Outpatient (CLI) | payer OTHER ==
[2023-06-05 08:24] VITALS: BP 107/55; PULSE 77; RESP 18; TEMP 98.4
[2023-06-05 08:30] LABS: Appearance,Urine Clear (Clear); Bilirubin,Urine Negative (Negative); Blood,Urine Negative (Negative); Color,Urine Colorless; Glucose,Urine (UA) Negative (Negative); Ketones,Urine Negative (Negative); Leukocyte Esterase,Urine Negative (Negative); Nitrite,Urine Negative (Negative); Protein,Urine Negative (Negative); Specific Gravity,Urine 1.002 (1.001-1.035); Urobilinogen,Urine <2.0 mg/dL (<2.0)
--- NOTE | 2023-06-05 08:41 | P.MSEPDOC ---
Presenting Problems - Arrival Data Date of Arrival on Unit: 06/05/23 Time of Arrival on Unit: 06:46 Mode of Transport: Wheelchair - Complaint OB-Reason for Admission/Chief Complaint: Pain Comment: contractions,lower back pain,lower left abd pain. Medical History - Information : 2 Para: 1 Term: 1 : 0 Abortions: Spontaneous or Elective: 0 Number of Living Children: 1 - Gestational Age Gestational Age by DELON (wks/days): 27 Weeks and 2 Days - History Complications: No Care Review of Systems - Review of Systems Constitutional: No problems Breast: No problems ENT: No problems Cardiovascular: No problems Respiratory: No problems Gastrointestinal: No problems Genitourinary: No problems Musculoskeletal: No problems Neurological: No problems Skin: No problems Vital Signs - Temperature Temperature: 98.4 F Temperature Source: Temporal Artery Scan - Pulse Pulse Oximetery Pulse Rate: 77 Pulse Assessment Method: Pulse Oximetry - Respirations Respiratory Rate: 18 Oxygen Delivery Method: Room Air O2 Sat by Pulse Oximetry: 95 - Blood Pressure Right Arm Blood Pressure: 107/55 Blood Pressure Mean: 72 Blood Pressure Source: Automatic Cuff Medical Screen Scoring - Assessment - Baby A Baseline FHR: 135 Heart Rate - NICHD Category: Category I (Normal) - Assessment - Baby B Baseline FHR: 135 Heart Rate - NICHD Category: Category I (Normal) Physician Notification - Physician Notified Physician Notified Date: 06/05/23 Physician Notified Time: 08:13 Physician: Rosie Dumas Order Received: Yes (UA) Maternal Triage Index - Maternal Triage Index Presenting for scheduled procedure w/no complaint: No - Stat/Priority 1 Stat Priority 1: No - Urgent/Priority 2 Urgent Priority 2: No - Prompt/Priority 3 Prompt Priority 3: No - Non-Urgent/Priority 4 Non-Urgent Priority 4: Yes Criteria Met for Priority 4: lower back pain, lower left abd pain, irregular contractions. Disposition - Disposition OB Disposition: Triage I agree with the RN Medical Screening Exam: Yes Case reviewed; plan agreed upon as documented in EMR&OBIX.: Yes Diagnosis: FALSE LABOR BEFORE 37 COMPLETED WEEKS OF GEST, SECOND TRI
== END 2023-06-05 09:10 | disposition home or self-care (01) ==
LOC: FBPOP 06:46
PROVIDERS: ATTEND Obstetrics & Gynecology
DX: O47.02 False labor before 37 completed weeks of gestation, second trimester (principal); Z3A.27 27 weeks gestation of pregnancy
CPT/HCPCS: 81003; 99213

== ENCOUNTER 2023-06-28 16:33 | Outpatient (CLI) | payer OTHER ==
[2023-06-28 17:39] VITALS: BP 101/62; PULSE 100; RESP 16; TEMP 97
--- NOTE | 2023-06-29 09:11 | P.MSEPDOC ---
Presenting Problems - Arrival Data Date of Arrival on Unit: 06/28/23 Time of Arrival on Unit: 16:33 Mode of Transport: Ambulatory - Complaint OB-Reason for Admission/Chief Complaint: Vaginal Bleeding, Pain Medical History - Information : 2 Para: 1 Number of Living Children: 1 - Gestational Age Gestational Age by DELON (wks/days): 30 Weeks and 4 Days - History Complications: Multiple Review of Systems - Review of Systems Constitutional: No problems Breast: No problems ENT: No problems Cardiovascular: No problems Respiratory: No problems Gastrointestinal: No problems Genitourinary: No problems Musculoskeletal: No problems Neurological: No problems Skin: No problems Vital Signs - Temperature Temperature: 97.0 F Temperature Source: Temporal Artery Scan - Pulse Right Supine Brachial Pulse Rate: 100 Pulse Assessment Method: Automatic Cuff - Respirations Respiratory Rate: 16 Oxygen Delivery Method: Room Air O2 Sat by Pulse Oximetry: 99 - Blood Pressure Right Arm Blood Pressure: 101/62 Blood Pressure Mean: 75 Blood Pressure Source: Automatic Cuff Medical Screen Scoring - Cervical Exam Dilation (cm): 0 Effacement (%): 0 - Uterine Contractions Intensity: Mild - Assessment - Baby A Baseline FHR: 140 Heart Rate - NICHD Category: Category I (Normal) NST: Reactive - Assessment - Baby B Baseline FHR: 140 Heart Rate - NICHD Category: Category I (Normal) NST: Reactive Physician Notification - Physician Notified Physician Notified Date: 06/28/23 Physician Notified Time: 17:25 Maternal Triage Index - Maternal Triage Index Presenting for scheduled procedure w/no complaint: No - Stat/Priority 1 Stat Priority 1: No - Urgent/Priority 2 Urgent Priority 2: No - Prompt/Priority 3 Prompt Priority 3: Yes Criteria Met for Priority 3: multiple gestation, contx, and bleeding Disposition - Disposition OB Disposition: Discharge to home Discharge Date: 06/28/23 Discharge Time: 17:30 I agree with the RN Medical Screening Exam: Yes Case reviewed; plan agreed upon as documented in EMR&OBIX.: Yes Diagnosis: RELATED CONDITIONS, UNSPECIFIED, THIRD TRIMESTER (Patient presents to labor and delivery with complaints of low back pain. Patient's care is per Dr. Dumas is complicated by twin gestation. Patient also had some spotting earlier the day but is having no bleeding now. Cervix is closed. heart tones are category 1. At this point there is no evidence of labor or maternal/ compromise. Patient instructed to go home on bedrest follow up with Dr. Dumas next week. She instructed to return if she had any concerns or increased symptomatology.)
== END 2023-06-28 17:20 | disposition home or self-care (01) ==
LOC: FBPOP 16:33
PROVIDERS: ATTEND Obstetrics & Gynecology
DX: O26.893 Other specified pregnancy related conditions, third trimester (principal); N93.9 Abnormal uterine and vaginal bleeding, unspecified; Z3A.30 30 weeks gestation of pregnancy; Z79.82 Long term (current) use of aspirin
CPT/HCPCS: 59025; 99213

== ENCOUNTER → 2023-07-19 | Outpatient (CLI) | payer OTHER ==
[2023-07-19 17:58] VITALS: BP 110/62; PULSE 98; RESP 16; TEMP 97.2
== END ==
LOC: FBPOP 13:21
PROVIDERS: ATTEND Obstetrics & Gynecology
DX: O30.003 Twin pregnancy, unspecified number of placenta and unspecified number of amniotic sacs, third trimester (principal); Z3A.33 33 weeks gestation of pregnancy
CPT/HCPCS: 59025

== ENCOUNTER 2023-07-30 10:22 | Outpatient (CLI) | payer OTHER ==
[2023-07-30 11:17] VITALS: BP 102/71; PULSE 102; RESP 18; TEMP 97.1
== END 2023-07-30 11:11 | disposition home or self-care (01) ==
LOC: FBPOP 10:22
PROVIDERS: ATTEND Obstetrics & Gynecology
DX: O30.003 Twin pregnancy, unspecified number of placenta and unspecified number of amniotic sacs, third trimester (principal); Z3A.35 35 weeks gestation of pregnancy
CPT/HCPCS: 59025

== ENCOUNTER 2023-08-09 15:15 | Outpatient (CLI) | payer OTHER ==
[2023-08-09 16:42] VITALS: BP 114/61; PULSE 87; RESP 18; TEMP 96.8
--- NOTE | 2023-08-11 13:03 | P.MSEPDOC ---
Presenting Problems - Arrival Data Date of Arrival on Unit: 08/09/23 Time of Arrival on Unit: 15:15 Mode of Transport: Ambulatory - Complaint OB-Reason for Admission/Chief Complaint: NST Medical History - Information : 2 Para: 1 Term: 1 : 0 Abortions: Spontaneous or Elective: 0 Number of Living Children: 1 - Gestational Age Gestational Age by DELON (wks/days): 36 Weeks and 4 Days - History Complications: Multiple Review of Systems - Review of Systems Constitutional: No problems Breast: No problems ENT: No problems Cardiovascular: No problems Respiratory: No problems Gastrointestinal: No problems Genitourinary: No problems Musculoskeletal: No problems Neurological: No problems Skin: No problems Vital Signs - Temperature Temperature: 96.8 F Temperature Source: Temporal Artery Scan - Pulse Right Pulse Oximetery Pulse Rate: 87 Pulse Assessment Method: Pulse Oximetry - Respirations Respiratory Rate: 18 Oxygen Delivery Method: Room Air O2 Sat by Pulse Oximetry: 98 - Blood Pressure Right Arm Blood Pressure: 114/61 Blood Pressure Mean: 78 Blood Pressure Source: Automatic Cuff Medical Screen Scoring - Uterine Contractions Frequency From (mins): 2 Frequency To (mins): 4 Duration From (seconds): 40 Duration To (seconds): 50 Intensity: Mild Resting: Soft to palpation - Assessment - Baby A Baseline FHR: 125 Heart Rate - NICHD Category: Category I (Normal) NST: Reactive - Assessment - Baby B Baseline FHR: 140 Heart Rate - NICHD Category: Category I (Normal) NST: Reactive Physician Notification - Notification Comment Comment: Written that patient may be discharged with reactive NST Maternal Triage Index - Maternal Triage Index Presenting for scheduled procedure w/no complaint: Yes - Scheduled/Requesting Priority 5 Scheduled/Requesting Priority 5: Yes Criteria Met for Priority 5: NST Disposition - Disposition OB Disposition: Discharge to home Discharge Date: 08/09/23 Discharge Time: 15:58 I agree with the RN Medical Screening Exam: Yes Case reviewed; plan agreed upon as documented in EMR&OBIX.: Yes Diagnosis: TWIN , DICHORIONIC/DIAMNIOTIC, THIRD TRIMESTER
== END 2023-08-09 15:58 | disposition home or self-care (01) ==
LOC: FBPOP 15:15
PROVIDERS: ATTEND Obstetrics & Gynecology
DX: O30.043 Twin pregnancy, dichorionic/diamniotic, third trimester (principal); Z3A.36 36 weeks gestation of pregnancy
CPT/HCPCS: 59025

== ENCOUNTER 2023-08-12 06:10 | Inpatient (IN) | payer OTHER ==
[2023-08-12] MEDS ORDERED: CITRIC ACID-SODIUM CITRATE 15 ML CUP PO ONE (06:35)
[2023-08-12] MEDS ORDERED: CARBOPROST TROMETHAMINE 250 MCG/ML 1 ML AMP IM PRN (06:35)
[2023-08-12] MEDS ORDERED: OXYTOCIN 10 UNIT/ML 1 ML VIAL IM PRN (06:35)
[2023-08-12] MEDS ORDERED: miSOPROStoL 200 MCG TAB PO PRN (06:35)
[2023-08-12] MEDS ORDERED: METHYLERGONOVINE 0.2 MG/ML 1 ML AMP IM PRN (06:35)
[2023-08-12] MEDS ORDERED: TRANEXAMIC 1,000 MG/100ML-NACL 1,000 MG in EMPTY BAG 1 BAG IV PRN (06:35)
[2023-08-12] MEDS ORDERED: OXYTOCIN 30 UNITS/500 ML NS 30 UNIT in SALINE 1 500ML.BAG IV SCH (06:45)
[2023-08-12 07:14] LABS: Basophils % (A) 0 %; Eosinophils # (A) 0.1 k/uL (0-0.7); Eosinophils % (A) 2 %; HGB 10.2 gm/dL (11.4-16.0); Hypochromasia Slight; Lymphocytes % (A) 24 %; MCH 25.8 pg (25.0-35.0); MCV 78.1 fL (80.0-100.0); Mean Platelet Volume 8.9; Monocytes # (A) 0.7 k/uL (0-1.0); Monocytes % (A) 8 %; Neutrophils # (A) 5.2 k/uL (1.3-7.7); Neutrophils % (A) 63 %; Platelet Count 306 k/uL (150-450); Poikilocytosis Slight; RBC 3.97 m/uL (3.80-5.40); WBC 8.3 k/uL (3.8-10.6)
[2023-08-12 07:22] LABS: INR 0.9 (<1.2); Partial Thromboplastin Time 22.6 sec (22.0-30.0); Prothrombin Time 9.3 sec (9.0-12.0)
[2023-08-12] MEDS: LACTATED RINGERS 1,000 ML IV SCH ×5 (07:24→21:09)
[2023-08-12] MEDS ORDERED: METOCLOPRAMIDE 5 MG/ML 2 ML VIAL IVP PRN (09:17)
[2023-08-12] MEDS ORDERED: NALOXONE 0.4 MG/ML 1 ML VIAL IV PRN (09:17)
[2023-08-12] MEDS ORDERED: diphenhydrAMINE 25 MG CAP PO PRN (09:17)
[2023-08-12] MEDS ORDERED: ONDANSETRON 4 MG/2 ML VIAL IVP PRN (09:17)
[2023-08-12] MEDS ORDERED: diphenhydrAMINE 50 MG/ML 1 ML VIAL IVP PRN ×2 (09:17)
[2023-08-12] MEDS ORDERED: ZOLPIDEM 5 MG TAB PO PRN (09:17)
[2023-08-12] MEDS ORDERED: diphenhydrAMINE 50 MG CAP PO PRN (09:17)
[2023-08-12] MEDS: ACETAMINOPHEN TAB 500 MG TAB PO SCH ×3 (10:49→23:56)
[2023-08-12] MEDS: KETOROLAC 15 MG/ML 1 ML VIAL IVP SCH ×2 (15:33→21:06)
[2023-08-12] MEDS: SENNOSIDES-DOCUSATE SODIUM 1 EACH TAB PO SCH (21:06)
[2023-08-13] MEDS: KETOROLAC 15 MG/ML 1 ML VIAL IVP SCH ×2 (03:42→12:37)
[2023-08-13] MEDS: ACETAMINOPHEN TAB 500 MG TAB PO SCH ×3 (06:16→19:50)
--- NOTE | 2023-08-13 07:05 | P.PN ---
Progress Note - Text Progress Note Date: 08/13/23 (0631.) Anesthesia Postop day 1 Subjective: Status Post section with Duramorph. Patient seen and examined. Nausea vomiting and pruritus yesterday. Now resolved. VAS 5 out of 10. Denies any current nausea vomiting or pruritus. Denies fever. Gross lower extremity strength intact. Without apparent anesthetic complications. Objective: Vital signs reviewed Heart: Regular Rate Lungs: Good chest excursion Abdomen: Appears nondistended Assessment: Status post with Duramorph postop day 1 Plan: Continue current care with your medical management. Anticipated and the Duramorph section around time today. You may see increased pain needs around this time.
--- NOTE | 2023-08-13 07:06 | P.PN ---
Progress Note - Text Progress Note Date: 08/13/23 (263) Anesthesia Postop day 1 Subjective: Status Post robotic hysterectomy with Duramorph. Patient seen and examined. Slight nausea yesterday. VAS 3 out of 10. No current nausea vomiting or pruritus. Denies fever. Gross lower extremity strength intact. Without apparent anesthetic complications. Objective: Vital signs reviewed Heart: Regular Rate Lungs: Good chest excursion Abdomen: Appears nondistended Assessment: Status post robotic hysterectomy with Duramorph postop day 1 Plan: Continue current care with your medical management. Anticipated and the Duramorph section around surgery time today. You may see increased pain needs around this time.
[2023-08-13 07:16] LABS: Basophils % (A) 0 %; Eosinophils # (A) 0.1 k/uL (0-0.7); Eosinophils % (A) 1 %; HGB 9.3 gm/dL (11.4-16.0); Hypochromasia Slight; Lymphocytes # (A) 1.7 k/uL (1.0-4.8); Lymphocytes % (A) 16 %; MCH 25.9 pg (25.0-35.0); MCHC 33.1 g/dL (31.0-37.0); MCV 78.1 fL (80.0-100.0); Mean Platelet Volume 8.4; Monocytes # (A) 0.7 k/uL (0-1.0); Monocytes % (A) 7 %; Neutrophils # (A) 8.3 k/uL (1.3-7.7); Neutrophils % (A) 76 %; Platelet Count 290 k/uL (150-450); Poikilocytosis Slight; RBC 3.58 m/uL (3.80-5.40); RDW 15.2 % (11.5-15.5); WBC 11.1 k/uL (3.8-10.6)
--- NOTE | 2023-08-13 07:36 | P.HPOB ---
History of Present Illness H&P Date: 08/12/23 Chief Complaint: primary c/s for twins and family planning 33-year-old with dichorionic diamniotic twin gestation presents for primary low transverse and tubal ligation. heart tones are category 1. Review of Systems All systems: negative Constitutional: Denies chills, Denies fever Eyes: denies blurred vision, denies pain Ears, nose, mouth and throat: Denies headache, Denies sore throat Cardiovascular: Denies chest pain, Denies shortness of breath Respiratory: Denies cough Gastrointestinal: Denies abdominal pain, Denies diarrhea, Denies nausea, Denies vomiting Genitourinary: Denies dysuria, Denies hematuria Musculoskeletal: Denies myalgias Integumentary: Denies pruritus, Denies rash Neurological: Denies numbness, Denies weakness Psychiatric: Denies anxiety, Denies depression Endocrine: Denies fatigue, Denies weight change Past Medical History Past Medical History: Asthma, GERD/Reflux Additional Past Medical History / Comment(s): antiphospholipid antiboties History of Any Multi-Drug Resistant Organisms: None Reported Past Surgical History: No Surgical Hx Reported Additional Past Surgical History / Comment(s): breast biopsy Past Anesthesia/Blood Transfusion Reactions: Postoperative Nausea & Vomiting (PONV) Past Psychological History: No Psychological Hx Reported Smoking Status: Never smoker Past Alcohol Use History: None Reported Past Drug Use History: None Reported - Past Family History Father Family Medical History: Coronary Artery Disease (CAD) Medications and Allergies Home Medications Medication Instructions Recorded Confirmed Type Famotidine [Pepcid] 20 mg PO DAILY 02/10/18 08/12/23 History Magnesium 500 mg PO DAILY 05/04/23 08/12/23 History buPROPion HCL [buPROPion HCL XL] 300 mg PO DAILY 05/04/23 08/12/23 History Cyanocobalamin (Vitamin B-12) 1,000 mcg SQ Q14D 06/05/23 08/12/23 History [B-12 Oral Soln] Hydroxychloroquine Sulfate 200 mg PO DAILY 07/19/23 08/12/23 History [Plaquenil] Omeprazole [PriLOSEC] 20 mg PO DAILY 07/19/23 08/12/23 History Acetaminophen [Tylenol Extra 1,000 mg PO DIRECTED PRN 08/08/23 08/12/23 History Strength] Docusate [Colace] 200 mg PO DAILY 08/08/23 08/12/23 History Heparin Sodium,Porcine (1 ml) 5,000 unit SQ Q12HR 08/08/23 08/12/23 History [Heparin Sodium] Unk Folate 666 Mcg 1 tab PO DAILY 08/08/23 08/12/23 History Allergies Allergy/AdvReac Type Severity Reaction Status Date / Time No Known Allergies Allergy Verified 08/09/23 15:52 Exam Osteopathic Statement: *. No significant issues noted on an osteopathic structural exam other than those noted in the History and Physical/Consult. Vital Signs Temp Pulse Resp BP Pulse Ox 08/13/23 03:53 98 F 74 18 110/72 98 08/13/23 00:00 98.2 F 73 18 110/68 98 08/12/23 19:44 97.5 F L 57 L 18 115/65 97 08/12/23 15:57 97.4 F L 56 L 16 122/49 98 08/12/23 12:00 97.6 F 57 L 16 121/68 99 08/12/23 10:40 97.4 F L 58 L 16 126/68 99 08/12/23 10:10 56 L 16 132/67 08/12/23 09:40 58 L 16 117/62 99 08/12/23 09:25 59 L 16 127/62 99 08/12/23 09:10 62 16 123/58 99 08/12/23 08:55 63 16 118/58 99 08/12/23 08:40 97.6 F 78 16 111/55 Intake and Output 08/12/23 08/13/23 08/13/23 22:59 06:59 14:59 Output Total 250 950 Balance -250 -950 Output: Urine 250 950 Straight 300 Heart: Regular rate and rhythm Lungs: Clear to auscultation bilaterally Abdomen: Soft, nontender Extremities: Negative Homans sign Results Result Diagrams: 08/13/23 06:50 Abnormal Lab Results - Last 24 Hours (Table) 08/13/23 Range/Units 06:50 WBC 11.1 H (3.8-10.6) k/uL RBC 3.58 L (3.80-5.40) m/uL Hgb 9.3 L (11.4-16.0) gm/dL Hct 28.0 L (34.0-46.0) % MCV 78.1 L (80.0-100.0) fL Neutrophils # 8.3 H (1.3-7.7) k/uL Assessment and Plan (1) Dichorionic diamniotic twin gestation Current Visit: Yes Status: Acute Code(s): O30.049 - TWIN , DI CHORIONIC/DIAMNIOTIC, UNSP TRIMESTER SNOMED Code(s): 294364751 (2) Family planning Current Visit: Yes Status: Acute Code(s): Z30.09 - ENCOUNTER FOR OT GENERAL CNSL AND ADVICE ON CONTRACEPTION SNOMED Code(s): 095975233 Plan: 1. Primary low transverse with tubal ligation
--- NOTE | 2023-08-13 07:41 | P.OP ---
Date of Procedure: 08/12/23 Preoperative Diagnosis: 1. dichorionic/diamniotic twin gestatin 2. 37 weeks 3. family planning Postoperative Diagnosis: same Procedure(s) Performed: Primary low transverse with tubal ligation Anesthesia: spinal Surgeon: Rosie Dumas Print Buyer #1: Tristen Esquivel Estimated Blood Loss (ml): 400 IV fluids (ml): 1,000 Urine output (ml): 200 Pathology: other (bilateral fallopian tubes) Condition: stable Disposition: floor Operative Findings: Normal uterus, tubes, ovaries. 2 viable infants. A, male, Apgars 9, 9, weight 5 lbs. 6 oz.: B, female, Apgars 9, 9, weight 4 lbs. 13 oz. Description of Procedure: Patient was taken to the operating room where spinal anesthesia was found be adequate. She was prepped and draped in normal sterile fashion in dorsal supine position with a leftward tilt. Pfannenstiel skin incision was made the scalpel and carried through to the underlying layer of fascia with the scalpel. Fascia was incised in midline and carried bilaterally with the Villanueva scissors. The superior aspect of the fascial incision was grasped with Craig clamps elevated and the underlying rectus muscles dissected off with the Villanueva's. Attention was then turned to inferior aspect of same incision which in a similar fashion was grasped tented up and the underlying rectus muscles dissected off with the Villanueva's. The rectus muscles were the midline and the peritoneum was identified tented up and entered sharply with the scalpel. The incision was extended superiorly and inferiorly with good visualization of the bladder. The bladder blade was inserted and the vesicouterine peritoneum was incised the Metzenbaums then carried bilaterally and bladder flap created digitally. A low transverse incision was then made on the uterus with the scalpel. This was carried bilaterally and digital manner. A head delivered atraumatically, nose and mouth bulb suctioned, cord clamped and cut, handed off to waiting nurses. Apgars 9,9, weight 5 lbs. 6 oz. infant B was internally rotated to vertex position. Head delivered atraumatically, nose and mouth bulb suctioned, cord clamped and cut, infant handed off to waiting nurses. Apgars 9, 9, weight 4 lbs. 13 oz. Placenta delivered manually, intact with three-vessel cord. The uterus is exteriorized and cleared of all clots and debris. The uterine incision was closed with 0 Vicryl in a running locked fashion. Second layer of the same sutures used in imbricating fashion to obtain excellent hemostasis. Bladder flap was then reapproximated using 2-0 Vicryl in a running fashion. Both ovaries and tubes appeared normal. Window was made in the mesosalpinx of the right fallopian tube. The right fallopian tube was doubly ligated and a section was removed. The left fallopian tube mesosalpinx a window was made with the Bovie, the left fallopian tube was doubly ligated segment was removed and the pedicles were cauterized with the Bovie. The uterus was placed back into the abdomen. The peritoneum was reapproximated using 2-0 Vicryl in a running fashion. The muscles were reapproximated using 2-0 Vicryl in interrupted fashion. The fascia was reapproximated using 0 Vicryl in a running fashion. The subcutaneous tissues closed with 3-0 Vicryl running fashion. The skin was closed christiano. Patient tolerated the procedure well, sponge and instrument counts were correct times 2 and she was taken to the recovery room in stable condition.
[2023-08-13] MEDS: SENNOSIDES-DOCUSATE SODIUM 1 EACH TAB PO SCH ×2 (10:08→19:50)
[2023-08-13] MEDS: IBUPROFEN 600 MG TAB PO SCH ×3 (10:08→22:21)
[2023-08-13] MEDS: LACTATED RINGERS 1,000 ML IV SCH (12:15)
[2023-08-13] MEDS: SIMETHICONE 80 MG CHEWABLE PO PRN (16:47)
[2023-08-14] MEDS: ACETAMINOPHEN TAB 500 MG TAB PO SCH ×3 (01:55→13:07)
[2023-08-14] MEDS: IBUPROFEN 600 MG TAB PO SCH ×2 (04:07→10:43)
--- NOTE | 2023-08-14 07:11 | P.PNOBGPC ---
Subjective - Subjective Principal diagnosis: Status post primary low transverse with tubal ligation postop day Interval history: Patient seen and examined. Denies nausea, vomiting, chest pain, shortness of breath or calf pain. Patient reports: Reports appetite normal, Reports voiding normally, Reports pain well controlled, Reports ambulating normally Vega: doing well Objective - Vital Signs Latest vital signs: Vital Signs Temp Pulse Resp BP Pulse Ox 08/14/23 00:00 97.8 F 64 18 111/70 98 08/13/23 16:00 98.4 F 68 14 101/65 99 08/13/23 08:00 98.1 F 86 16 105/66 98 Intake and Output 08/13/23 08/14/23 08/14/23 22:59 06:59 14:59 Intake Total 240 Balance 240 Intake: Oral 240 Other: # Voids 2 2 - Exam Lungs: bilateral: normal Chest: Normal S1, Normal S2 Extremities: Present: normal Abdomen: Present: normal appearance, soft. Absent: distention, tenderness Incision: Present: normal, dry, intact Uterus: Present: normal, firm - Labs Labs: Abnormal Lab Results - Last 24 Hours (Table) 08/13/23 Range/Units 06:50 WBC 11.1 H (3.8-10.6) k/uL RBC 3.58 L (3.80-5.40) m/uL Hgb 9.3 L (11.4-16.0) gm/dL Hct 28.0 L (34.0-46.0) % MCV 78.1 L (80.0-100.0) fL Neutrophils # 8.3 H (1.3-7.7) k/uL Assessment and Plan (1) Dichorionic diamniotic twin gestation Current Visit: Yes Status: Resolved Code(s): O30.049 - TWIN , DICHORIONIC/DIAMNIOTIC, UNSP TRIMESTER SNOMED Code(s): 996384138 (2) Family planning Current Visit: Yes Status: Resolved Code(s): Z30.09 - ENCOUNTER FOR OT GENERAL CNSL AND ADVICE ON CONTRACEPTION SNOMED Code(s): 147495129 (3) Status post primary low transverse section Current Visit: Yes Status: Acute Code(s): Z98.891 - HISTORY OF UTERINE SCAR FROM PREVIOUS SURGERY SNOMED Code(s): 448215002 Plan: 1. cont po care
[2023-08-14] MEDS: SENNOSIDES-DOCUSATE SODIUM 1 EACH TAB PO SCH (07:53)
[2023-08-14] MEDS: SIMETHICONE 80 MG CHEWABLE PO PRN (07:55)
[2023-08-14 08:25] VITALS: BP 108/58; PULSE 77; RESP 16; TEMP 97.9
--- NOTE | 2023-08-14 08:44 | P.DS ---
Providers Date of admission: 08/12/23 06:10 Expected date of discharge: 08/14/23 Attending physician: Rosie Dumas Primary care physician: Stated None - Discharge Diagnosis(es) (1) Dichorionic diamniotic twin gestation Current Visit: Yes Status: Resolved (2) Family planning Current Visit: Yes Status: Resolved (3) Status post primary low transverse section Current Visit: Yes Status: Acute Hospital Course: She presented for primary low transverse and tubal ligation due to diiodide twin gestation and family planning. She underwent this procedure without crepitation. She denies nausea, vomiting, chest pain, shortness of breath or calf pain. Her incision is clean, dry, intact. Patient will be discharged home postoperative day #2 in stable condition to follow-up with me in one week. Plan - Discharge Summary Discharge Rx Participant: Yes New Discharge Prescriptions: New Ibuprofen [Motrin] 600 mg PO Q6H #30 tab No Action Famotidine [Pepcid] 20 mg PO DAILY buPROPion HCL [buPROPion HCL XL] 300 mg PO DAILY Magnesium 500 mg PO DAILY Hydroxychloroquine Sulfate [Plaquenil] 200 mg PO DAILY Acetaminophen [Tylenol Extra Strength] 1,000 mg PO DIRECTED PRN PRN Reason: Pain Docusate [Colace] 200 mg PO DAILY Cyanocobalamin (Vitamin B-12) [B-12 Oral Soln] 1,000 mcg SQ Q14D Omeprazole [PriLOSEC] 20 mg PO DAILY Heparin Sodium,Porcine (1 ml) [Heparin Sodium] 5,000 unit SQ Q12HR Unk Folate 666 Mcg 1 tab PO DAILY Discharge Medication List Famotidine [Pepcid] 20 mg PO DAILY 02/10/18 [History] Magnesium 500 mg PO DAILY 05/04/23 [History] buPROPion HCL [buPROPion HCL XL] 300 mg PO DAILY 05/04/23 [History] Cyanocobalamin (Vitamin B-12) [B-12 Oral Soln] 1,000 mcg SQ Q14D 06/05/23 [History] Hydroxychloroquine Sulfate [Plaquenil] 200 mg PO DAILY 07/19/23 [History] Omeprazole [PriLOSEC] 20 mg PO DAILY 07/19/23 [History] Acetaminophen [Tylenol Extra Strength] 1,000 mg PO DIRECTED PRN 08/08/23 [History] Docusate [Colace] 200 mg PO DAILY 08/08/23 [History] Heparin Sodium,Porcine (1 ml) [Heparin Sodium] 5,000 unit SQ Q12HR 08/08/23 [H istory] Unk Folate 666 Mcg 1 tab PO DAILY 08/08/23 [History] Ibuprofen [Motrin] 600 mg PO Q6H #30 tab 08/14/23 [Rx] Follow up Appointment(s)/Referral(s): Rosie Dumas DO [Doctor of Osteopathic Medicine] - 1 Week (PO 08/30/2023 @11:30 Am) Discharge Disposition: HOME SELF-CARE
== END 2023-08-14 14:50 | disposition home or self-care (01) | DRG 784 ==
LOC: 4FBP 06:10
PROVIDERS: ADMIT Obstetrics & Gynecology; ATTEND Obstetrics & Gynecology
PROC: 10D00Z1 Extraction of Products of Conception, Low, Open Approach (ICD-10-PCS; principal; 2023-08-13)
PROC: 0UB70ZZ Excision of Bilateral Fallopian Tubes, Open Approach (ICD-10-PCS; 2023-08-13)
DX: O69.2XX0 Labor and delivery complicated by other cord entanglement, with compression, not applicable or unspecified (principal); D68.61 Antiphospholipid syndrome; O99.12 Other diseases of the blood and blood-forming organs and certain disorders involving the immune mechanism complicating childbirth; O99.62 Diseases of the digestive system complicating childbirth; J45.909 Unspecified asthma, uncomplicated; L29.9 Pruritus, unspecified; O99.73 Diseases of the skin and subcutaneous tissue complicating the puerperium; O99.52 Diseases of the respiratory system complicating childbirth; O30.043 Twin pregnancy, dichorionic/diamniotic, third trimester; K21.9 Gastro-esophageal reflux disease without esophagitis; Z3A.37 37 weeks gestation of pregnancy; Z37.2 Twins, both liveborn; Z30.2 Encounter for sterilization; Z79.899 Other long term (current) drug therapy; Z82.49 Family history of ischemic heart disease and other diseases of the circulatory system; Z37.0 Single live birth; Z3A.00 Weeks of gestation of pregnancy not specified
CPT/HCPCS: 85025; 85610; 85730; 86850; 86900; 86901; 88302

== ENCOUNTER → 2023-09-12 | Outpatient (CLI) | payer OTHER ==
--- NOTE | 2023-09-12 09:27 | US ---
EXAMINATION TYPE: US abdomen complete DATE OF EXAM: 09/12/2023 COMPARISON: 07/31/2022 CLINICAL INDICATION: Female, 33 years old with history of R11.0 NAUSEA; TECHNIQUE: Multiple sonographic images of the abdomen are obtained. FINDINGS: EXAM MEASUREMENTS: Liver Length: 17.1 cm Gallbladder Wall: 0.2 cm CBD: 0.4 cm Spleen: 11.1 cm Right Kidney: 9.8 x 5.1 x 5.4 cm Left Kidney: 10.7 x 5.3 x 5.3 cm [employer] NOTES: Difficult exam due to overlying bowel gas and patient body habitus Pancreas: Obscured by bowel gas Liver: wnl as best visualized Gallbladder: wnl Evidence for sonographic Alonzo's sign: No CBD: wnl Spleen: wnl Right Kidney: 0.8 x 1.0 x 1.0cm cystic area seen inferior pole. ? cyst vs prominent medullary pyrami d Left Kidney: wnl Upper IVC: wnl Abd Aorta: wnl The liver is homogenous. The intrahepatic portion of the IVC and proximal abdominal aorta are within normal limits. There is no evidence of cholelithiasis. Common bile duct is unremarkable. The panc reas is obscured by overlying bowel gas. The spleen is unremarkable. Kidneys are symmetric and free of hydronephrosis. No solid renal lesions seen. Right inferior pole 1 cm renal sinus cyst. IMPRESSION: Limited examination due to overlying bowel gas and patient body habitus. No ultrasound evidence for acute process.
== END | disposition home or self-care (01) ==
LOC: RADUSWWP 08:16
PROVIDERS: ATTEND Family Medicine
DX: R11.0 Nausea (principal)
CPT/HCPCS: 76700

== ENCOUNTER → 2023-12-03 | Outpatient (CLI) | payer OTHER ==
[2023-12-04 02:18] LABS: Basophils # (A) 0.03 X 10*3/uL (0.00-0.10); Basophils % (A) 0.5 %; Eosinophils # (A) 0.14 X 10*3/uL (0.04-0.35); Eosinophils % (A) 2.3 %; HCT 37.1 % (37.2-46.3); HGB 11.6 g/dL (12.0-15.0); Lymphocytes # (A) 1.35 X 10*3/uL (0.90-5.00); Lymphocytes % (A) 22.4 %; MCH 25.3 pg (27.0-32.0); MCHC 31.3 g/dL (32.0-37.0); MCV 80.8 FL (80.0-97.0); Mean Platelet Volume 10.3 FL (9.5-12.2); Monocytes # (A) 0.72 X 10*3/uL (0.20-1.00); Monocytes % (A) 11.9 %; NRBC Per 100 WBC 0 X 10*3/uL (0.00-0.01); Neutrophils # (A) 3.77 X 10*3/uL (1.80-7.70); Neutrophils % (A) 62.6 %; Platelet Count 356 X 10*3/uL (140-440); RBC 4.59 X 10*6/uL (4.10-5.20); RDW 14.8 % (11.5-14.5); WBC 6.03 X 10*3/uL (4.50-10.00)
[2023-12-04 02:56] LABS: % Iron Saturation 8.27 (12.00-45.00); Ferritin 16.5 ng/mL (10.0-291.0)
[2023-12-04 13:50] LABS: APTT 36 Sec(s) (<43); Dilute Russell Viper Venom 24 Sec(s) (<44)
== END | disposition home or self-care (01) ==
LOC: LABWHC1 16:24
PROVIDERS: ATTEND Internal Medicine Hematology & Oncology
DX: D68.312 Antiphospholipid antibody with hemorrhagic disorder (principal); J45.998 Other asthma; R51.9 Headache, unspecified; R06.02 Shortness of breath
CPT/HCPCS: 36415; 82607; 82728; 82747; 83516; 83540; 83550; 85025; 85613; 85730